=== PATIENT | male | born 2000 | race Caucasian/White ===

== ENCOUNTER 2023-05-18 10:19 | Emergency (ER) | payer MEDICAID ==
[~2023-05-18] VITALS: Ht 182.9 cm; Wt 72.6 kg
[2023-05-18 13:07] VITALS: BP 130/78; TEMP 98.1; O2SAT 98
== END 2023-05-18 13:08 | disposition home or self-care (01) ==
LOC: ER 10:19
DX: S01.01XA Laceration without foreign body of scalp, initial encounter (principal); W22.8XXA Striking against or struck by other objects, initial encounter; Y93.89 Activity, other specified; Y92.89 Other specified places as the place of occurrence of the external cause; Y99.8 Other external cause status
CPT/HCPCS: 70450; 72125; A4606; A4663